=== PATIENT | male | born 1945 | race African-American/Black ===

== ENCOUNTER 2017-07-22 06:22 | Emergency (ER) | payer OTHER ==
[~2017-07-22] VITALS: Ht 182.9 cm; Wt 78.0 kg
[2017-07-22] MEDS ORDERED: ONDANSETRON HCL 4 MG/2 ML VIAL ONE (07:16)
[2017-07-22] MEDS ORDERED: SODIUM CHLORIDE 0.9% 1,000 ML IV ONE (07:21)
[2017-07-22] MEDS ORDERED: LORazepam 2MG/ML-1ML VIAL IV ONE (07:30)
[2017-07-22] MEDS ORDERED: ONDANSETRON HCL 4 MG/2 ML VIAL IV ONE (07:30)
[2017-07-22 07:49] LABS: Urine Bilirubin Negative (Negative); Urine Blood Negative /uL (Negative); Urine Color Yellow (Yellow); Urine Glucose 2+ mg/dL (Normal); Urine Ketone 1+ (Negative); Urine Nitrite Negative (Negative); Urine RBC None Seen /hpf (0 - 3); Urine Squamous Epithelial Cell FEW /hpf (<5); Urine Urobilinogen Normal (Negative)
[2017-07-22 07:52] LABS: Magnesium 2.2 mg/dL (1.6-2.6)
[2017-07-22 07:54] LABS: Albumin 3.6 g/dL (3.4-5.0); Calcium 9.4 mg/dL (8.5-10.1)
[2017-07-22 07:55] LABS: Basophils # (auto) 0 uL; Basophils % (auto) 0.5 % (0.0-2.0); Eosinophils # (auto) 0.1 uL; Eosinophils % (auto) 1.1 % (0.0-7.0); Hematocrit 35.2 % (41.0-53.0); Hemoglobin 11.2 g/dL (13.5-17.5); Lymphocytes # (auto) 1.6 uL; Mean Corpuscular Hemoglobin 24.1 pg (28.0-32.0); Mean Corpuscular Hgb Conc. 31.7 g/dL (32.0-36.0); Mean Corpuscular Volume 75.9 fL (80.0-100.0); Mean Platelet Volume 10.3 fL (6.9-10.8); Monocytes # (auto) 0.4 uL; Neutrophils % (auto) 65.4 % (37.0-80.0); Nucleated Red Blood Cells % 0.1 %; Platelet Count (auto) 162 10^3/uL (140-450); Red Cell Distribution Width 14.7 % (11.8-14.3); White Blood Cell 6.2 10^3/uL (4.4-10.8)
[2017-07-22 07:57] LABS: Bilirubin, Total 0.3 mg/dL (0.2-1.0)
[2017-07-22 08:00] LABS: INR 0.97 (0.9-1.15); Partial Thromboplastin Time 27.2 sec (22.64-33.71); Prothrombin Time 10.6 sec (9.37-12.3)
[2017-07-22 10:45] VITALS: BP 131/77
[2017-07-22] MEDS ORDERED: ACETAMINOPHEN 325 MG TAB PO ONE (11:15)
[2017-07-22] MEDS ORDERED: LEVETIRACETAM 500 MG TAB PO ONE (13:30)
[2017-07-22 14:23] LABS: Anisocytosis Slight; Hypochromia Slight; Microcytosis Slight; Platelet Estimate Adequate
== END 2017-07-22 14:06 | disposition home or self-care (01) ==
LOC: ER 06:28
DX: G40.909 Epilepsy, unspecified, not intractable, without status epilepticus (principal); E11.65 Type 2 diabetes mellitus with hyperglycemia; D50.9 Iron deficiency anemia, unspecified; F12.10 Cannabis abuse, uncomplicated; G89.29 Other chronic pain; M54.9 Dorsalgia, unspecified
CPT/HCPCS: 36415; 70450; 80053; 80307; 80320; 81001; 83735; 84443; 85025; 85610; 85730; 93005; 94761; 96361; 96374; 96375; 99285; J2060; J2405; J7030

== ENCOUNTER 2019-03-03 18:09 | Emergency (ER) | payer OTHER ==
[~2019-03-03] VITALS: Ht 165.1 cm; Wt 95.3 kg
[2019-03-03] MEDS ORDERED: LIDOCAINE 2% JELLY 11ml (GLYDO) ONE (18:27)
[2019-03-03 18:51] VITALS: BP 156/79
[2019-03-03] MEDS ORDERED: LIDOCAINE 2% JELLY 11ml (GLYDO) UR ONE (19:00)
== END 2019-03-03 18:56 | disposition home or self-care (01) ==
LOC: ER 18:11
DX: R33.9 Retention of urine, unspecified (principal); E11.9 Type 2 diabetes mellitus without complications; E78.5 Hyperlipidemia, unspecified; I10 Essential (primary) hypertension; F12.10 Cannabis abuse, uncomplicated; Z85.46 Personal history of malignant neoplasm of prostate
CPT/HCPCS: 51702

== ENCOUNTER 2019-08-13 13:04 | Emergency (ER) | payer OTHER ==
[~2019-08-13] VITALS: Ht 165.1 cm; Wt 79.4 kg
[2019-08-13 18:32] LABS: Urine Bacteria MOD /hpf (None Seen); Urine Blood 2+ /uL (Negative); Urine Mucus FEW (None Seen); Urine Specific Gravity 1.014 (1.001-1.035); Urine WBC 1547 /hpf (0 - 3)
[2019-08-13 18:50] VITALS: BP 127/69
== END 2019-08-13 19:11 | disposition home or self-care (01) ==
LOC: ER 13:04
DX: N39.0 Urinary tract infection, site not specified (principal); N13.9 Obstructive and reflux uropathy, unspecified; E11.9 Type 2 diabetes mellitus without complications; E78.5 Hyperlipidemia, unspecified; I10 Essential (primary) hypertension; F12.10 Cannabis abuse, uncomplicated; Z90.89 Acquired absence of other organs; Z88.8 Allergy status to other drugs, medicaments and biological substances; Z85.46 Personal history of malignant neoplasm of prostate
CPT/HCPCS: 51702; 81001